=== PATIENT | male | born 1975 | race Two or more races ===

== ENCOUNTER 2017-11-07 13:22 | Emergency (ER) | payer MEDICAID ==
[~2017-11-07] VITALS: Ht 172.7 cm; Wt 81.6 kg
[2017-11-07] MEDS ORDERED: IV NS 1000 ML 1,000 ML IV ONE (14:15)
[2017-11-07] MEDS ORDERED: ONDANSETRON IV *ER 4 MG/2 ML VIAL IV ONE (14:15)
--- NOTE | 2017-11-07 14:28 | NUR ---
IV PLACED, ZOFRAN ADMINISTERED, BLOOD DRAWN-SENT. 1L 0.9NS BVOLUS INFUSING. PT POSITIONED FOR COMFORT.
[2017-11-07 14:30] LABS: BASOPHILS % (AUTO) 0.2 % (0.0-2.0); EOSINOPHILS # (AUTO) 0.1 K/uL (0.0-0.7); EOSINOPHILS % (AUTO) 0.8 % (0.0-7.0); HEMATOCRIT 47.7 % (36.7-47.1); HEMOGLOBIN 15.7 g/dL (12.5-16.3); LYMPHOCYTES % (AUTO) 8.5 % (20.5-51.5); MEAN CORPUSCULAR HEMOGLOBIN 28.3 uug (23.8-33.4); MEAN CORPUSCULAR HGB CONC 33 g/dL (32.5-36.3); MEAN CORPUSCULAR VOLUME 86.1 fL (73.0-96.2); MONOCYTES # (AUTO) 0.3 K/uL (2.0-10.0); NEUTROPHILS # (AUTO) 9.9 K/uL (1.8-8.9); NEUTROPHILS % (AUTO) 87.5 % (38.5-71.5); PLATELET COUNT (AUTO) 218 K/uL (152-348); RED BLOOD CELL COUNT(AUTO) 5.54 MIL/uL (4.06-5.63); WHITE BLOOD COUNT (AUTO) 11.4 K/uL (3.6-10.2)
[2017-11-07 14:34] LABS: CREATININE 1.1 mg/dL (0.6-1.3)
[2017-11-07 14:40] LABS: BILIRUBIN,TOTAL 0.6 mg/dL (0.2-1.0); TOTAL PROTEIN, SERUM 7.5 g/dL (6.4-8.2)
[2017-11-07] MEDS ORDERED: ONDANSETRON 4 MG/2 ML VIAL ONE (14:41)
--- NOTE | 2017-11-07 16:06 | NUR ---
IV removed. Catheter intact and site benign. Pressure and 4x4 gauze applied to site. No bleeding noted.
[2017-11-07 16:07] VITALS: BP 115/77
--- NOTE | 2017-11-07 16:07 | NUR ---
Patient discharged to home in stable conditon. Written and verbal after care instructions given. Patient verbalizes understanding of instructions.
== END 2017-11-07 16:07 | disposition home or self-care (01) ==
LOC: ER 13:23
DX: R11.2 Nausea with vomiting, unspecified (principal)
CPT/HCPCS: 74022; 80053; 83690; 85025; 96361; 96374; 99285; A4663; J2405; J7030

== ENCOUNTER 2023-03-21 14:50 | Emergency (ER) | payer MEDICAID ==
[~2023-03-21] VITALS: Ht 172.7 cm; Wt 81.6 kg
--- NOTE | 2023-03-21 15:18 | NUR ---
[email or web address], medical screening exam in progress
[2023-03-21] MEDS ORDERED: VALA500T PO (15:25)
[2023-03-21] MEDS ORDERED: POLY10DR6 EACHEYE (15:29)
[2023-03-21] MEDS ORDERED: OFLO5DRO3 EACHEYE (15:31)
--- NOTE | 2023-03-21 15:43 | NUR ---
Patient discharged to home by Dr Greenfield in stable condition with brisk steady gait. Written and verbal after care instructions given to patient. Patient verbalized understanding and compliance of instructions. Stressed follow up with primary doctor and opthalmologist or return to ER for worsening s/s.
[2023-03-21 15:49] VITALS: BP 111/70
== END 2023-03-21 15:43 | disposition home or self-care (01) ==
LOC: ER 15:01
DX: H10.9 Unspecified conjunctivitis (principal); H00.011 Hordeolum externum right upper eyelid; Z79.899 Other long term (current) drug therapy; Z79.2 Long term (current) use of antibiotics
CPT/HCPCS: A4663

== ENCOUNTER 2024-10-06 09:14 | Emergency (ER) | payer MEDICAID, OTHER ==
[~2024-10-06] VITALS: Ht 172.7 cm; Wt 81.6 kg
[~2024-10-06 09:14] MED LIST: OFLO5DRO3 EACHEYE; VALA500T PO
[2024-10-06] MEDS ORDERED: ACETAMINOPHEN 500 MG TABLET ONE ×2 (09:51→09:52)
[2024-10-06] MEDS ORDERED: SULFAMETH/TRIMETH 800/160 MG TABLET ONE (09:51)
[2024-10-06] MEDS: ACETAMINOPHEN 500 MG TABLET PO ONE (10:03)
[2024-10-06] MEDS: SULFAMETH/TRIMETH 800/160 MG TABLET PO ONE (10:03)
[2024-10-06] MEDS ORDERED: SULF1TAB48 PO (10:11)
[2024-10-06 10:23] VITALS: BP 140/76; TEMP 97.9; O2SAT 98
== END 2024-10-06 10:23 | disposition home or self-care (01) ==
LOC: ER 09:14
DX: L03.115 Cellulitis of right lower limb (principal); Z79.624 Long term (current) use of inhibitors of nucleotide synthesis
CPT/HCPCS: 73630; A4606; A4663; A9150